=== PATIENT | female | born 2000 | race Caucasian/White ===

== ENCOUNTER 2020-04-23 13:12 | Emergency (ER) | payer BC, SELFPAY ==
[2020-04-23 13:39] VITALS: BP 135/92; PULSE 119; RESP 16; TEMP 37.1; O2SAT 96; BMI 34.0
--- NOTE | 2020-04-23 13:40 | HMH.EDUTC ---
[facility] [place] Disposition Clinical Impression: Exposure to COVID-19 virus Disposition: Home, Self-Care Condition on Discharge: Good Instructions: Preventing the Spread of Coronavirus Discharge Instructions Additional Instructions: Drink plenty of fluids. Take tylenol for pain or fever. Follow up with your regular doctor. GO TO THE ER FOR ANY WORSENING SYMPTOMS FOLLOW THE DIRECTIONS ON THE COVID-19 HAND OUT THAT WE GAVE YOU REGARDING SELF-ISOLATION UNTIL YOU KNOW YOUR COVID-19 RESULTS Referrals: Carmine Russo MD [Primary Care Provider] - Forms: Work/School Release Time of Disposition: 13:40 Medical Decision Making - Medical Records Medical records reviewed: No: I reviewed the patient's medical records. - Mor Inquiry Pt receiving controlled substance: No Vital Signs: 04/23/20 13:39 04/23/20 14:08 Temperature 98.8 F 98.8 F Temperature Source Oral Oral Pulse Rate 119 H Pulse Rate [Radial] 119 H Respiratory Rate 16 16 Blood Pressure 135/92 H Blood Pressure [Right Arm] 135/92 H Blood Pressure Mean [Right Arm] 106 Blood Pressure Source Automatic Cuff Blood Pressure Source [Right Arm] Automatic Cuff Blood Pressure Position Sitting Blood Pressure Position [Right Arm] Sitting 02 Sat by Pulse Oximetry 96 Oxygen Delivery Method Room Air Room Air [facility] [place] HPI - General Stated complaint: covid test Time Seen by Provider: 04/23/20 13:40 - History of Present Illness Provider Complaint: She needs a covid test. She denies any symptoms. - Related Data Home Medications Medication Instructions Recorded Confirmed PARoxetine HCl [Paxil] 40 mg PO DAILY 02/01/19 02/01/19 norethindrone-e.estradioL-iron 1 each PO DAILY 02/01/19 02/01/19 [Microgestin Fe 1-20 Tablet] Allergies Allergy/AdvReac Type Severity Reaction Status Date / Time No Known Allergies Allergy Verified 02/01/19 20:13 [facility] History - Hepatitis A Screen Attestation statement:: This patient has been screened for Hepatitis A risk factors. I have reviewed the patient's past medical history: Yes - Social History Alcohol Intake: never Occupational Status: student Housing: house ROS Obtained: Yes All systems reviewed & no additional complaints - Constitutional Constitutional: Denies chills, Denies fever(s) - Eyes Eyes: Denies eye discharge - ENT Ears, Nose, Mouth, and Throat: Denies dizziness, Denies otalgia, Denies sore throat - Cardiovascular Cardiovascular: Denies chest pain Physical Exam - General General appearance: alert, in no apparent distress - Head Head exam: atraumatic, normocephalic, normal inspection - Eye Eye exam: Present: normal appearance, PERRL, EOMI - ENT ENT exam: Present: normal exam, normal oropharynx, mucous membranes moist, TM's normal bilaterally, normal external ear exam - Neck Neck exam: Present: normal inspection, full ROM, trachea midline. Absent: meningismus, lymphadenopathy - Chest Chest inspection: Present: normal inspection, symmetric chest wall rise. Absent: tenderness - Respiratory Respiratory exam: Present: normal lung sounds bilaterally. Absent: respiratory distress - Cardiovascular Cardiovascular exam: Present: regular rate, normal rhythm. Absent: JVD - Abdominal Exam Abdominal exam: Present: soft, normal bowel sounds. Absent: distention, tenderness, guarding - Extremities Exam Extremities exam: Present: normal inspection, full ROM, normal capillary refill. Absent: calf tenderness - Back Exam Back exam: Present: normal inspection. Absent: tenderness - Neurological Exam Neurological exam: Present: alert, oriented X3 - Psychiatric Psychiatric exam: Present: normal affect, normal mood - Skin Skin exam: Present: warm, dry, intact, normal color - Lymphatic Lymphatic Findings: no adenopathy
[2020-04-23 14:08] VITALS: BP 135/92; PULSE 119; RESP 16; TEMP 37.1; O2SAT 96
== END 2020-04-23 14:09 | disposition home or self-care (01) ==
PROVIDERS: Emergency Provider Nurse Practitioner Family; PCP Family Medicine
DX: Z20.828 Contact with and (suspected) exposure to other viral communicable diseases (principal)
CPT/HCPCS: 99201; U0003

== ENCOUNTER → 2020-05-11 10:30 | Outpatient (CLI) | payer BC, SELFPAY ==
[2020-05-11 11:40] LABS: Basophils # 0.1 K/mm3 (0-0.2); Basophils % 0.5 % (0.1-2.0); Eosinophils # 0.1 K/mm3 (0.0-0.4); Eosinophils % 0.5 % (0.1-12.0); Hematocrit 41.9 % (37.0-47.0); Hemoglobin 14.6 g/dL (12.2-16.2); Lymphocytes # 2.9 K/mm3 (0.7-4.5); Lymphocytes % 21.5 % (10-50); Mean Corpuscular HGB Conc 34.7 g/dL (31.8-35.4); Mean Corpuscular Hemoglobin 29.8 pg (27.0-31.2); Mean Corpuscular Volume 85.8 fl (81-99); Mean Platelet Volume 7.8 fl (7.4-10.4); Monocytes # 0.5 K/mm3 (0.1-1.0); Neutrophils # 9.7 K/mm3 (1.8-7.8); Neutrophils % 73.5 % (37.0-80.0); Platelet Count 375 K/mm3 (142-424); Red Blood Count 4.88 M/mm3 (4.20-5.40); Red Cell Distribution Width 12.5 % (11.5-17.5); White Blood Count 13.2 K/mm3 (4.8-10.8)
[2020-05-11 12:00] LABS: Strep Scrn Group A (Rapid) Negative (Negative)
== END ==
LOC: COVID.OUT 10:50 → LAB 11:01
PROVIDERS: PCP Family Medicine; Visit Provider Physician Assistant
DX: Z03.818 Encounter for observation for suspected exposure to other biological agents ruled out (principal)
CPT/HCPCS: 36415; 85025; 87430

== ENCOUNTER → 2020-06-01 14:43 | Outpatient (CLI) | payer BC, SELFPAY ==
[2020-06-01 15:19] LABS: Basophils # 0.1 K/mm3 (0-0.2); Basophils % 0.6 % (0.1-2.0); Eosinophils # 0.1 K/mm3 (0.0-0.4); Eosinophils % 0.5 % (0.1-12.0); Hematocrit 44.1 % (37.0-47.0); Hemoglobin 15.1 g/dL (12.2-16.2); Lymphocytes # 2.1 K/mm3 (0.7-4.5); Lymphocytes % 18.5 % (10-50); Mean Corpuscular HGB Conc 34.3 g/dL (31.8-35.4); Mean Corpuscular Hemoglobin 29.4 pg (27.0-31.2); Mean Corpuscular Volume 85.7 fl (81-99); Mean Platelet Volume 7.4 fl (7.4-10.4); Monocytes # 0.5 K/mm3 (0.1-1.0); Monocytes % 4.2 % (1.7-9.3); Neutrophils # 8.8 K/mm3 (1.8-7.8); Neutrophils % 76.2 % (37.0-80.0); Platelet Count 340 K/mm3 (142-424); Red Blood Count 5.14 M/mm3 (4.20-5.40); Red Cell Distribution Width 12.4 % (11.5-17.5); White Blood Count 11.6 K/mm3 (4.8-10.8)
[2020-06-01 15:27] LABS: Strep Scrn Group A (Rapid) Negative (Negative)
[2020-06-01 15:44] LABS: Monoscreen (Rapid) Negative (Negative)
[2020-06-04 12:51] LABS: Covid-19 Nasal PCR Sendout Lex NOT DETECTED
== END ==
PROVIDERS: PCP Nurse Practitioner; Visit Provider Nurse Practitioner
DX: Z03.818 Encounter for observation for suspected exposure to other biological agents ruled out (principal)
CPT/HCPCS: 36415; 85025; 86318; 87430; U0004

== ENCOUNTER → 2020-07-10 10:38 | Outpatient (CLI) | payer BC, SELFPAY ==
--- NOTE | 2020-07-10 11:14 | ECG_ITS ---
APPROVED REPORT Exam: Resting ECG HR:87 bpm ECG Measurements Heart Rate 87 AXES AR 114 P 37 QRSd 76 QRS 54 QT 344 T 39 QTc 413 Conclusion Normal sinus rhythm with sinus arrhythmia Normal ECG Electronically signed by : Darnell Donis, 07/10/2020 17:36:05
== END ==
PROVIDERS: PCP Nurse Practitioner Family; Visit Provider Nurse Practitioner Family
DX: R07.9 Chest pain, unspecified (principal)
CPT/HCPCS: 93005

== ENCOUNTER 2021-04-26 14:16 | Emergency (ER) | payer BC, SELFPAY ==
[2021-04-26 14:16] VITALS: BP 147/75; PULSE 84; RESP 18; TEMP 37; O2SAT 98; BMI 49.1
--- NOTE | 2021-04-26 15:21 | HMH.EDUTC ---
[facility] [place] Disposition Clinical Impression: Encounter for laboratory testing for COVID-19 virus Disposition: Home, Self-Care Condition on Discharge: Good Instructions: DI for COVID-19 (Suspected or Confirmed ), Preventing the Spread of Coronavirus Discharge Instructions Additional Instructions: *Monitor Temp, Over the counter Motrin or Tylenol as directed/as needed Tylenol every 4 hours and Motrin every 6 hours (as long as your family doctor has told you that you can take it) for fever or pain. and straight to ER if unable to lower temp less than 101.0 after medication given Follow up IMMEDIATELY for new or worsening symptoms or no Noticeable improvement over the next 48-72 hours. 911 for difficulty breathing or swallowing You were tested for today for COVID19 your test result should be back in the next 24-48 hours, you may call to the [facility] to see if your test results are back in the next 48 hours [phone] [facility] hours are 9am-9pm You was given a handout with instructions for Self Quarantine and Self isolation for while you wait on test results and what to do if they are positive If you are positive the Health Dept will be contacting you also Make sure to take your Vitamins Vit. C Vit D and Zinc if you can take them Referrals: Carmine Russo MD [Primary Care Provider] - As needed Forms: Work/School Release Time of Disposition: 15:25 Medical Decision Making - Mor Inquiry Pt receiving controlled substance: No Mor was queried for this patient: No Vital Signs: 04/26/21 14:16 Temperature 98.6 F Temperature Source Oral Pulse Rate [Left Radial] 84 Respiratory Rate 18 Blood Pressure [Right Arm] 147/75 H Blood Pressure Mean [Right Arm] 99 02 Sat by Pulse Oximetry 98 Oxygen Delivery Method Room Air Orders (Tests/Meds): ORDERS Category Date Time Status Covid-19 Nasal PCR ([facility]) Routine Lab 04/26/21 15:02 Received [facility] [place] HPI - General Stated complaint: covid test Time Seen by Provider: 04/26/21 15:21 Mode of Arrival: Ambulatory Source of Information: Patient Limitations: No Limitations Description of Symptoms (Recalled from Triage Doc. by RN): needs a covid test for work, upset stomach last night, feels fine now HEENT Symptoms (Recalled from RN notes): No Resp Symptoms (Recalled from RN notes): No Skin Symptoms (Recalled from RN notes): No MS Symptoms (Recalled from RN notes): No Functional Status (Recalled from RN notes): na - History of Present Illness Provider Complaint: Patient states that she thinks she may have eaten something that made her stomach upset and she had to call off work now they will not let her return until she gets a COVID test States that she feels fine now and no longer having upset stomach - Related Data Home Medications Medication Instructions Recorded Confirmed PARoxetine HCl [Paxil] 40 mg PO DAILY 02/01/19 02/01/19 norethindrone-e.estradioL-iron 1 each PO DAILY 02/01/19 02/01/19 [Microgestin Fe 1-20 Tablet] Allergies Allergy/AdvReac Type Severity Reaction Status Date / Time No Known Allergies Allergy Verified 02/01/19 20:13 - Worker's Comp Is this a Worker's Comp case?: No H History - Hepatitis A Screen Drug use history?: No High risk sexual behaviors?: No History of sexually transmitted infection?: No Currently employed?: No Childcare worker?: No Do you have indoor plumbing?: Yes Do you have electricity?: Yes Attestation statement:: This patient has been screened for Hepatitis A risk factors. I have reviewed the patient's past medical history: Yes - Social History Alcohol Intake: never Occupational Status: employed Housing: house ROS Obtained: Yes All systems reviewed & no additional complaints, Yes Systems reviewed as appropriate & no additional complaints - Constitutional Constitutional: Reports system reviewed and no additional complaints, except as docu, Denies body ache, Denies chills, Denies fever(s) - ENT Ears, Nose, Mouth
[2021-04-26 15:31] VITALS: BP 147/75; PULSE 84; RESP 18; TEMP 37; O2SAT 98
--- NOTE | 2021-04-27 21:11 | PC.NURSE ---
ATTEMPTED TO CALL PT ABOUT COVID TEST RESULTS. NO ANSWER. WILL TRY AGAIN LATER
== END 2021-04-26 15:32 | disposition home or self-care (01) ==
PROVIDERS: Emergency Provider Nurse Practitioner; PCP Family Medicine
DX: U07.1 COVID-19 (principal)
CPT/HCPCS: 99202; G0463; U0003

== ENCOUNTER → 2021-05-01 11:41 | Outpatient (CLI) | payer BC, SELFPAY | PROVIDERS: PCP Physician Assistant; Visit Provider Physician Assistant | DX: Z20.822 Contact with and (suspected) exposure to COVID-19 (principal) | CPT/HCPCS: U0003 ==

== ENCOUNTER → 2021-07-28 13:29 | Outpatient (CLI) | payer BC, SELFPAY | PROVIDERS: PCP Physician Assistant; Visit Provider Nurse Practitioner Family | DX: Z20.822 Contact with and (suspected) exposure to COVID-19 (principal) | CPT/HCPCS: C9803; U0003; U0005 ==

== ENCOUNTER → 2021-09-18 11:33 | Outpatient (CLI) | payer BC, SELFPAY | DX: Z20.822 Contact with and (suspected) exposure to COVID-19 (principal) | CPT/HCPCS: C9803; U0003; U0005 ==